=== PATIENT | male | born 1950 | race Caucasian/White ===

== ENCOUNTER 2021-09-15 15:37 | Emergency (ER) | payer MEDICARE, OTHER, SELFPAY ==
--- NOTE | ~2021-09-15 | CT_ITS ---
EXAMINATION: CTA brain carotid DATE: 09/15/2021 18:13 TRAFFIC POLICE OFFICER INDICATION: Dizziness and hypertension. Headache. TECHNIQUE: Computed tomographic angiography (CTA) of the head was performed without and with 100 mL O mnipaque-350 intravenous contrast. CTA of the neck was performed with intravenous contrast. The dose- length product was 1848.91 mGy-cm. Maximum intensity projection and volume rendered 3D-reconstruction s were created by the technologist on a separate workstation. COMPARISON: No prior studies for comparison. . FINDINGS: HEAD CTA: Brain parenchymal volume is normal. Normal guillen-white differentiation. Mild intracranial atherosclero sis. There are scattered mild periventricular and subcortical white matter changes, most likely relat ed to small vessel ischemic disease (microangiopathy). No acute intracranial hemorrhage, infarction, mass or mass effect. There is dominant left vertebral artery without evidence for significant stenosi s, occlusion or aneurysm. The anterior, middle and posterior cerebral arteries are symmetric with mil d atherosclerosis in the cavernous sinuses. NECK CTA: There is atherosclerosis of the carotid bulbs. No significant cervical lymphadenopathy. Thy roid gland is unremarkable. No evidence for significant stenosis or occlusion or dissection. There is 22% stenosis of the proximal right internal carotid artery relative to normal distal artery lumen diameter (NASCET criteria). There is 36% stenosis of the proximal left internal carotid artery relative to normal distal artery lumen diameter. IMPRESSION: 1. 22% stenosis of the proximal right internal carotid artery relative to normal distal artery lumen diameter (NASCET criteria). 2. 36% stenosis of the proximal left internal carotid artery relative to normal distal artery lumen d iameter. 3: No acute intracranial abnormality. No significant intracranial vascular abnormality. Reviewed, dictated and finalized at location A. FIC POLICE OFFICER IMPRESSION: 1. 22% stenosis of the proximal right internal carotid artery relative to marleny l distal artery lumen diameter (NASCET criteria). 2. 36% stenosis of the proximal left internal carotid artery relative to normal distal artery lumen diameter. 3: No acute intracranial abnormality. No significant intracranial vascular abno rmality.
[2021-09-15 15:40] VITALS: BP 225/96; PULSE 59; RESP 18; TEMP 36.2; O2SAT 99
--- NOTE | 2021-09-15 15:56 | ECG_ITS ---
Measurements Intervals [place] Rate: 56 P: 26 MN: 156 QRS: 1 QRSD: 104 T: 14 QT: 430 QTc: 416 Interpretive Statements SINUS BRADYCARDIA OTHERWISE NORMAL ECG NO PREVIOUS ECG AVAILABLE FOR COMPARISON Electronically Signed On 09-16-2021 10:58:03 PLASTER FOREMAN by Zeus Esquivel M.D.
[2021-09-15] MEDS: amLODIPine BESYLATE 5 MG TABLET PO (16:20)
[2021-09-15 16:24] LABS: Basophils Percent Auto 0.4 % (0.2-1.2); Eosinophils Absolute Auto 0.2 K/mm3 (0-0.3); Eosinophils Percent Auto 2.6 % (0-4.4); Hematocrit 49.2 % (42.0-52.0); Hemoglobin 16.4 g/dL (14.0-18.0); Immature Granulocyte Absolute 0.03 K/mm3 (0.00-0.031); Immature Granulocyte Percent A 0.4 % (0-0.5); Lymphocytes Absolute Auto 2.45 K/mm3 (0.9-3.2); Lymphocytes Percent Auto 34.2 % (18.3-44.2); Mean Corpuscular HGB Conc 33.3 g/dl (32-36); Mean Corpuscular Hemoglobin 31.2 pg (26-34); Mean Corpuscular Volume 93.7 fl (80-100); Mean Platelet Volume 10.8 fl (7.4-10.4); Monocytes Absolute Auto 0.7 K/mm3 (0.1-0.6); Monocytes Percent Auto 10.2 % (2.6-8.5); Neutrophils Absolute Auto 3.7 K/mm3 (1.3-6.7); Neutrophils Percent Auto 52.2 % (45.5-73.1); Platelet Count Result 179 k/mm3 (150-375); Red Blood Count 5.25 M/mm3 (4.6-6.20); Red Cell Distribution Width 13.2 % (11.5-14.5); White Blood Count 7.2 K/mm3 (4.5-10.0)
[2021-09-15 16:34] LABS: INR 0.9; Prothrombin Time 12.2 Seconds (11.1-14.7)
[2021-09-15 16:35] LABS: Partial Thromboplastin Time 32.1 SECONDS (22.3-36.8)
[2021-09-15 16:48] VITALS: BP 210/82; PULSE 54; RESP 18; O2SAT 98
[2021-09-15 16:50] LABS: Alanine Aminotransferase 32 U/L (4-50); Albumin Level 4.7 g/dL (3.5-5.1); Alkaline Phosphatase 68 U/L (38-126); Anion Gap 8 mmol/L (8-16); Aspartate Amino Transferase 37 U/L (17-59); Bilirubin,Total 0.7 mg/dL (0.2-1.3); Blood Urea Nitrogen 19 mg/dL (9-20); Calcium 9.4 mg/dL (8.4-10.2); Carbon Dioxide 26 mmol/L (22-30); Chloride 105 mmol/L (98-107); Estimated CRCL calculation 82 ml/min; Estimated Glomerular Filt Rate > 60; Glucose 90 mg/dL (65-110); Potassium 4.2 mmol/L (3.4-5.0); Sodium 139 mmol/L (137-145)
[2021-09-15 16:54] LABS: Add Urine Microscopic? YES; Appearance Urine Clear (Clear); Bilirubin Urine Negative (Negative); Blood Urine 1+ (Negative); Color Urine Straw (Yellow); Glucose Urine UA Negative (Negative); Ketones Urine Negative (Negative); Leukocyte Esterase Ur Negative LEU/UL (Negative); Nitrate Urine Negative (Negative); Protein Urine Negative (Negative); RBC Urine 0-2 /hpf (0-2); Urobilinogen Urine Negative mg/dL (<2.0); WBC Urine 0-3 /hpf
--- NOTE | 2021-09-15 16:55 | ED.RECABL ---
HPI - Recheck/Abnormal Lab/Rx General Chief Complaint: Recheck/Abnormal Lab/Rx Stated Complaint: high blood pressure Time Seen by Provider: 09/15/21 15:52 Source: patient Mode of arrival: ambulatory Limitations: no limitations History of Present Illness HPI narrative: This is a 70 year old male who presents for evaluation of dizziness and hypertension. Patient has history of long standing hypertension. He has elizabeth taking amlodopine 5 mg, atenolol 25 mg, and lisinopril 10 mg daily for 8 years. He states his blood pressure normally runs around 140s/70s, but he has not seen his PCP in 1.5 years. This afternoon, he developed throbbing pressure to his ear and dizziness. He checked his blood pressure it was was elevated. In triage, his blood pressure was 225/96. He denies having throbbing pressure now. He denies chest pain or shortness of breath. He has not symptoms now but he was concerned about his blood pressure. He is active and he was able to exercise at gym without symptoms. Related Data Home Medications Medication Instructions Recorded Confirmed aspirin 81 mg tablet,delayed 81 mg PO DAILY 06/23/20 06/23/20 release Allergies Allergy/AdvReac Type Severity Reaction Status Date / Time codeine Allergy Unknown Unknown Verified 09/15/21 16:49 Review of Systems Review of Systems: All systems reviewed & are unremarkable except as noted in HPI and below Eyes: Eyes: Denies change in vision and Denies photophobia Cardiovascular: Cardiovascular: Denies chest pain and Denies radiating jaw, neck or arm pain Respiratory: Respiratory: Denies cough and Denies dyspnea Gastrointestinal: Gastrointestinal: Denies abdominal pain and Denies nausea Neurologic: Reports headache(s) PMFSH Past Medical History Medical History Hypertension Family History Family History Other Hypertension Social History Social History Smoking status: Never smoker Alcohol intake: current Exam Narrative: GENERAL: Well-appearing, well-nourished, and in no acute distress. HEAD: Normocephalic, atraumatic EYES: PERRLA and EOMI, conjunctiva clear without discharge EARS: TM's clear bilaterally without erythema or dullness NOSE: Nares clear, no rhinorrhea or epistaxis THROAT:Mucous membranes moist, Oropharynx normal without erythema, exudate, peritonsillar swelling or fluctuance NECK: Supple, without lymphadenopathy or mass RESPIRATORY: No respiratory distress, Airway patent, Respirations non-labored, Clear to auscultation without rales, rhonchi or wheeze HEART: Regular rate and rhythm. No murmur heard. Normal peripheral pulses. ABDOMEN: Soft, nontender, nondistended, normal active bowel sounds. No masses. No rebound or guarding, No organomegaly. EXTREMITIES: No edema, normal strength with full range of motion. SKIN: Warm, dry, normal color without rash NEURO: Alert and oriented x3. CN 2-12 grossly intact. No focal deficits. PSYCH: Normal mood and affect. Course Reevaluation(s) Reevaluation #1: Patient would really like to go home. BP has improved. He will increased amlodipine and follow up with Dr. Melton on Friday. I Discussed CT scan and signs of TIA , stroke. He is asymptomatic Date: 09/15/21 Time: 19:06 Consultations Consultation #1: I spoke with Dr. Linh Mandujano's STUDY SPECIALIST . I discussed patient CT and BP. She will follow up with patient on Friday to get close follow up . Date: 09/15/21 Time: 18:57 Vital Signs Vital signs: Vital Signs Temperature 97.1 F L 09/15/21 15:40 Pulse Rate 59 L 09/15/21 15:40 Respiratory Rate 18 09/15/21 15:40 Blood Pressure 225/96 H 09/15/21 15:40 Pulse Oximetry 99 09/15/21 15:40 Temperature 97.1 F L 09/15/21 15:40 Pulse Rate 60 09/15/21 19:01 Respiratory Rate 18 09/15/21 19:01 Blood Pressur
[2021-09-15 17:00] VITALS: BP 204/91; PULSE 52; RESP 18; O2SAT 96
[2021-09-15 18:02] VITALS: BP 222/83; PULSE 54; RESP 18; O2SAT 98
[2021-09-15] MEDS: hydrALAZINE HCL 20 MG/ML VIAL 10 MG IV PUSH ×2 (18:07→18:45)
[2021-09-15 18:38] VITALS: BP 213/85; PULSE 54; RESP 18; O2SAT 97
[2021-09-15 19:01] VITALS: BP 163/63; PULSE 60; RESP 18; O2SAT 97
== END 2021-09-15 19:17 | disposition home or self-care (01) ==
PROVIDERS: Emergency Provider General Practice; PCP Family Medicine
DX: I16.0 Hypertensive urgency (principal); I10 Essential (primary) hypertension; Z79.82 Long term (current) use of aspirin; R00.1 Bradycardia, unspecified; I65.23 Occlusion and stenosis of bilateral carotid arteries
CPT/HCPCS: 36415; 70496; 70498; 80053; 81001; 85025; 85610; 85730; 93005; 96374; 96376; 99284; A9270; J0360; Q9967

== ENCOUNTER 2021-09-16 16:37 | Emergency (ER) | payer MEDICARE, OTHER, SELFPAY ==
[2021-09-16 16:40] VITALS: BP 226/76; PULSE 66; RESP 14; TEMP 36.3; O2SAT 99
[2021-09-16 16:48] VITALS: PULSE 66
[2021-09-16 16:54] VITALS: BP 183/61; PULSE 66; RESP 15; O2SAT 98
[2021-09-16 16:56] VITALS: BP 194/79
--- NOTE | 2021-09-16 17:19 | ED.GENADULT ---
HPI - General Adult General Chief complaint: Unspecified <Sophia Patel PA-C - Last Filed: 09/16/21 19:32> Stated complaint: ELEVATED BP <Sophia Patel PA-C - Last Filed: 09/16/21 19:32> Time Seen by Provider: 09/16/21 16:55 <Sophia Patel PA-C - Last Filed: 09/16/21 19:32> Source: patient <Sophia Patel PA-C - Last Filed: 09/16/21 19:32> Mode of arrival: ambulatory <Sophia Patel PA-C - Last Filed: 09/16/21 19:32> Limitations: no limitations <Sophia Patel PA-C - Last Filed: 09/16/21 19:32> History of Present Illness HPI narrative: Patient is a 70-year-old male who presents to the ED with complaints of lightheadedness and high blood pressure. Patient was seen in the ED yesterday for the same symptoms, at which point he had a normal work-up in the ED. No signs of end organ damage. CTA negative for significant stenosis. His PCP was contacted to make a follow-up appointment on Friday. Patient was instructed to increase his amlodipine to 10 mg in the morning, in addition to his atenolol 25 mg and lisinopril 10 mg. Patient took his medications this morning, and reports today he began to feel lightheaded after eating lunch. He checked his blood pressure which was 160/80 at that time. He then checked his blood pressure several more times today which was increased each time. He even took another amlodipine 5 mg and lisinopril 10 mg around 2 PM. He checked his blood pressure once more around 4 PM and noted it was increased to 200s over 100s, at which point he decided to return to the ED. BP upon arrival was 226/76. Upon my evaluation, BP 194/79. Patient reports feeling slightly lightheaded currently in the ED, but denies any dizziness, vertigo sensation, chest pain, cough, fevers, chills, back pain, headache, vision changes, shortness of breath, nausea, vomiting, abdominal pain, urinary symptoms, or focal weakness. Patient notes he is very active and goes to the gym several times a week. <Sophia Patel PA-C - Last Filed: 09/16/21 19:32> Related Data Home medications: Home Medications Medication Instructions Recorded Confirmed aspirin 81 mg tablet,delayed 81 mg PO DAILY 06/23/20 06/23/20 release <Sophia Patel PA-C - Last Filed: 09/16/21 19:32> Allergies/adverse reactions: Allergies Allergy/AdvReac Type Severity Reaction Status Date / Time codeine Allergy Unknown Unknown Verified 09/16/21 16:47 <Sophia Patel PA-C - Last Filed: 09/16/21 19:32> Review of Systems Review of Systems: CONSTITUTIONAL: Denies fever, chills, or sweats. EYES: Denies visual changes. CARDIOVASCULAR: Denies chest pain, palpitations, or edema. RESPIRATORY: Denies cough or dyspnea. GASTROINTESTINAL: Denies abdominal pain, nausea, vomiting, or diarrhea. GENITOURINARY: Denies dysuria or hematuria. MUSCULOSKELETAL: Denies back pain, joint pain, or myalgia. NEUROLOGIC: Reports lightheadedness. Denies dizziness, vertigo, headache, numbness, or focal weakness. <Sophia Patel PA-C - Last Filed: 09/16/21 19:32> All systems reviewed & are unremarkable except as noted in HPI and below <Sophia Patel PA-C - Last Filed: 09/16/21 19:32> [facility] Past Medical History Medical History: Medical History (Updated 09/16/21 @ 18:59 by Sophia Patel PA-C) Hypertension <Sophia Patel PA-C - Last Filed: 09/16/21 19:32> Surgical History Surgical History: Surgical History (Updated 09/16/21 @ 17:23 by Sophia Patel PA-C) No pertinent past surgical history <Sophia Patel PA-C - Last Filed: 09/16/21 19:32> Family History Family History: Family History Other Hypertension <Sophia Patel PA-C - Last Filed: 09/16/21 19:32> Social History Social History: Social History Smoking status: Never smoker Alcohol intake: current <Sophia Patel PA-C -
--- NOTE | 2021-09-16 17:21 | ECG_ITS ---
Measurements Intervals [place] Rate: 61 P: 5 [place]: 147 QRS: -15 QRSD: 99 T: -10 QT: 421 QTc: 426 Interpretive Statements SINUS RHYTHM MODERATE VOLTAGE CRITERIA FOR LVH, CONSIDER NORMAL VARIANT [MEETS CRITERIA IN ONE OF: R(aVL), S(V1), R(V5), R(V5/V6)+S(V1)] OTHERWISE NORMAL ECG COMPARED TO ECG 09/15/2021 15:58:22 NO SIGNIFICANT CHANGE Electronically Signed On 09-17-2021 13:55:00 FILM COLOR TESTER by Zeus Esquivel M.D.
[2021-09-16 17:34] LABS: Basophils Percent Auto 0.5 % (0.2-1.2); Eosinophils Absolute Auto 0.1 K/mm3 (0-0.3); Eosinophils Percent Auto 1.7 % (0-4.4); Hematocrit 49.5 % (42.0-52.0); Hemoglobin 16.5 g/dL (14.0-18.0); Immature Granulocyte Absolute 0.02 K/mm3 (0.00-0.031); Immature Granulocyte Percent A 0.3 % (0-0.5); Lymphocytes Percent Auto 30.8 % (18.3-44.2); Mean Corpuscular HGB Conc 33.3 g/dl (32-36); Mean Corpuscular Hemoglobin 31.5 pg (26-34); Mean Corpuscular Volume 94.6 fl (80-100); Mean Platelet Volume 10.4 fl (7.4-10.4); Monocytes Absolute Auto 0.8 K/mm3 (0.1-0.6); Neutrophils Absolute Auto 3.6 K/mm3 (1.3-6.7); Neutrophils Percent Auto 54.7 % (45.5-73.1); Platelet Count Result 155 k/mm3 (150-375); Red Blood Count 5.23 M/mm3 (4.6-6.20); Red Cell Distribution Width 13.2 % (11.5-14.5); White Blood Count 6.5 K/mm3 (4.5-10.0)
[2021-09-16 17:47] LABS: Anion Gap 9 mmol/L (8-16); Blood Urea Nitrogen 16 mg/dL (9-20); Calcium 9.6 mg/dL (8.4-10.2); Carbon Dioxide 25 mmol/L (22-30); Chloride 105 mmol/L (98-107); Estimated CRCL calculation 75 ml/min; Estimated Glomerular Filt Rate > 60; Glucose 106 mg/dL (65-110); Potassium 4.1 mmol/L (3.4-5.0); Sodium 139 mmol/L (137-145)
[2021-09-16 17:55] LABS: Troponin I < 0.012 ng/mL (0.000-0.034)
[2021-09-16 19:11] VITALS: BP 170/77; PULSE 57; RESP 20; TEMP 37.2; O2SAT 95
[2021-09-16 19:23] LABS: Add Urine Microscopic? YES; Appearance Urine Clear (Clear); Bilirubin Urine Negative (Negative); Blood Urine 2+ (Negative); Color Urine Straw (Yellow); Glucose Urine UA Negative (Negative); Ketones Urine Negative (Negative); Leukocyte Esterase Ur Negative LEU/UL (Negative); Mucus Urine Rare /lpf; Nitrate Urine Negative (Negative); Protein Urine Negative (Negative); RBC Urine 0-2 /hpf (0-2); Specific Grav Ur 1.009 (1.001-1.035); Urobilinogen Urine Negative mg/dL (<2.0); WBC Urine 0-3 /hpf
== END 2021-09-16 19:23 | disposition home or self-care (01) ==
PROVIDERS: Physician Assistant; Emergency Provider Emergency Medicine; PCP Family Medicine
DX: I16.0 Hypertensive urgency (principal); I10 Essential (primary) hypertension; R94.31 Abnormal electrocardiogram [ECG] [EKG]
CPT/HCPCS: 36415; 80048; 81001; 84484; 85025; 93005; 99284

== ENCOUNTER 2024-10-03 14:15 | Emergency (ER) | payer MEDICARE, SELFPAY ==
--- NOTE | ~2024-10-03 | XR_ITS ---
XR chest 1V portable DATE: 10/03/2024 18:31 INDICATION: Palpitations TECHNIQUE: Portable upright AP chest on 10/03/2024 at 1829 hours COMPARISON: 06/27/2017 2 view chest FINDINGS: Normal heart size. No hilar or mediastinal enlargement. Aortic arch calcification, minimal aortic unfolding. No pulmonary infiltrate or consolidation, pleural effusion or pulmonary vascular congestion or pneumo thorax. Degenerative spurring of the thoracic spine. IMPRESSION: No active cardiopulmonary disease Aortic atherosclerosis Reviewed, dictated and finalized at location A.
[2024-10-03 14:33] VITALS: BP 162/86; PULSE 64; RESP 18; TEMP 36.3; O2SAT 97
--- NOTE | 2024-10-03 14:33 | ECG_ITS ---
Test Date: 2024-10-03 14:39:19 Measurements Intervals [place] Rate: 55 P: 33 UT: 162 QRS: -5 QRSD: 98 T: 21 QT: 400 QTc: 383 Interpretive Statements SINUS BRADYCARDIA MINIMAL VOLTAGE CRITERIA FOR LVH, CONSIDER NORMAL VARIANT [MEETS CRITERIA IN ONE OF: R(aVL), S(V1), R(V5), R(V5/V6)+S(V1)] No previous ECG available for comparison Electronically Signed On 10-04-2024 16:33:01 CDT by Keny Nieto M.D.
[2024-10-03 17:30] VITALS: BP 146/77; PULSE 53; RESP 16; O2SAT 99
[2024-10-03 18:32] VITALS: BP 158/88; PULSE 52; PULSE 58; RESP 18; TEMP 36.6; O2SAT 98
[2024-10-03 18:57] LABS: Basophils Percent Auto 0.4 % (0.2-1.2); Eosinophils Absolute Auto 0.1 K/mm3 (0-0.3); Eosinophils Percent Auto 1.2 % (0-4.4); Hemoglobin 16.2 g/dL (14.0-18.0); Immature Granulocyte Absolute 0.04 K/mm3 (0.00-0.031); Immature Granulocyte Percent A 0.5 % (0-0.5); Lymphocytes Absolute Auto 2.83 K/mm3 (0.9-3.2); Lymphocytes Percent Auto 34.9 % (18.3-44.2); Mean Corpuscular HGB Conc 33.8 g/dl (32-36); Mean Corpuscular Hemoglobin 30.7 pg (26-34); Mean Corpuscular Volume 91.1 fl (80-100); Mean Platelet Volume 10.6 fl (7.4-10.4); Monocytes Absolute Auto 0.7 K/mm3 (0.1-0.6); Monocytes Percent Auto 8.9 % (2.6-8.5); Neutrophils Absolute Auto 4.4 K/mm3 (1.3-6.7); Neutrophils Percent Auto 54.1 % (45.5-73.1); Platelet Count Result 184 k/mm3 (150-375); Red Blood Count 5.27 M/mm3 (4.6-6.20); Red Cell Distribution Width 13.3 % (11.5-14.5); White Blood Count 8.1 K/mm3 (4.5-10.0)
[2024-10-03 19:11] LABS: Alanine Aminotransferase 42 U/L (6-50); Albumin Level 4.9 g/dL (3.5-5.1); Alkaline Phosphatase 65 U/L (38-126); Anion Gap 10 mmol/L (4-12); Aspartate Amino Transferase 35 U/L (17-59); Bilirubin,Total 0.7 mg/dL (0.2-1.3); Blood Urea Nitrogen 19 mg/dL (9-20); Calcium 10.2 mg/dL (8.4-10.2); Carbon Dioxide 28 mmol/L (22-30); Chloride 103 mmol/L (98-107); Estimated CRCL calculation 71 ml/min; Estimated Glomerular Filt Rate > 60; Glucose 100 mg/dL (65-110); Lipase 55 U/L (23-300); Potassium 3.9 mmol/L (3.4-5.0); Sodium 141 mmol/L (137-145)
[2024-10-03 19:16] LABS: INR 0.9; Prothrombin Time 12.6 Seconds (11.1-14.7)
[2024-10-03 19:17] LABS: Partial Thromboplastin Time 30.6 Seconds (22.3-36.8)
[2024-10-03 19:22] LABS: Troponin I < 0.012 ng/mL (0.000-0.034)
--- NOTE | 2024-10-03 19:50 | ED.ARRPALP ---
HPI - Arrhythmia/Palpitations General Chief Complaint: Arrhythmia/Palpitations Stated Complaint: palpitations, lightheaded Time Seen by Provider: 10/03/24 18:33 History of Present Illness HPI narrative: 73-year-old male with history of hypertension hyperlipidemia presents to the emergency department for palpitations and lightheadedness. Patient states around 12 30 today he was sitting on the couch when he began to feel his heart fluttering with associated lightheadedness. He states this lasted approximately 2 hours. He notes he has had similar episodes but usually the palpitations and lightheadedness occur her a couple hours after he is drink some beers. Patient states he has not had anything to drink today. Last drink was yesterday. He states he drinks about 4-5 beers 3-4 days a week. He notes that he went to the gym this morning and it weight training and cardio for 15 minutes and had no chest pain, lightheadedness, dizziness, shortness of breath or palpitations during that time. His symptoms did not start until he was L at home and sitting on his couch resting. He states he has not had any symptoms in several hours and feels in his normal state of health. He denies chest pain with his palpitations. Denies current palpitations, lightheadedness shortness of breath, chest pain, lower extremity edema, history of VTE. No history of prior arrhythmias, thyroid or cardiac disease. He has not worn a Holter monitor. Patient notes his heart rate is normally 52 beats per minute. Related Data Home Medications ?Medication ?Instructions ?Recorded ?Confirmed ?Last Taken ?Type aspirin 81 mg tablet,delayed 81 mg PO DAILY 06/23/20 05/19/24 Unknown History release (Adult Low Dose Aspirin) Allergies Allergy/AdvReac Type Severity Reaction Status Date / Time codeine Allergy Severe Nausea Verified 10/03/24 14:16 Review of Systems Review of Systems: All systems reviewed & are unremarkable except as noted in HPI and below PMFSH Past Medical History Medical History Screen for colon cancer COVID-19 BMI 33.0-33.9,adult Hypertension Surgical History Surgical History No pertinent past surgical history Family History Family History Father Melanoma Mother Kidney failure Sibling Acute myocardial infarction Neuroendocrine cancer Other Hypertension Social History Social History Smoking status: Former smoker Second hand tobacco smoke exposure: Yes Alcohol intake: current Substance use: never Substance use type: does not use Do You Feel Safe in your Home?: Yes Lack of Transportation: No Lack of Food: Never True Current Housing: I Have Housing Concerned About Future Housing: No Difficulty Paying Gas/Electric Bills: No Difficulty Paying for Meds: No Currently Unemployed: No Education: Trade/Vocational Certificate Difficulty w/ Childcare or Family Care: No Living arrangements: with family Occupation/Education: retired 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 HEAD: Normocephalic, atraumatic. EYES: EOMI. ENT: Nares clear, no rhinorrhea or epistaxis. Mucous membranes moist. NECK: Supple. CHEST: Clear to auscultation. No respiratory distress. HEART: Regular rate and rhythm. No murmur heard. Normal peripheral pulses. ABDOMEN: Soft, nontender, nondistended, normal active bowel sounds. EXTREMITIES: Normal range of motion. No edema. Negative Homans bilaterally SKIN: Warm, dry, no rash. NEURO: No focal deficits. Alert and oriented x3 Course Vital Signs Vital signs: Vital Signs Temperature 97.3 F L 10/03/24 14:33 Pulse Rate 64 10/03/24 14:33 Respiratory Rate 18 10/03/24 14:33 Blood Pressure 162/86 H 10/03/24 14:33 Pulse Oximetry 97 10/03/24 14:33 Temperature 97.8 F 10/03/24 18:32 Pulse Rate 58 L 10/03/24 21:29 Respiratory Rate 15 10/03/24 21:29 Blood Pressure 152/86 H 10/03/24 21:29 Pulse Oximetry 99 10/03/24 21:29 MDM - Arrhythmia/Palpitations MDM Narrative Medical decision making narrative: 73-year-old male with history of hypertension and hyperlipidemia presents to the emergency department for a 2 hour episode of palpitations and lightheadedness that occurred at 12:30 p.m. this afternoon while sitting on the couch. See HPI for further history. Vitals with elevated blood pressure, otherwise unremarkable. Patient is afebrile nontoxic appearing resting comfortably in exam bed. At the time of my evaluation patient has been asymptomatic for several hours. EKG shows sinus bradycardia with rate of 55 ppm, normal ND interval, normal QRS duration, normal QTC, no ischemic changes. Troponin undetectable. CBC unremarkable. Chemistry is without electrolyte derangements. Mag normal. TSH within normal limits. Chest x-ray shows no acute cardiopulmonary findings. Patient updated on results. Remains asymptomatic in the ED. He was advised to follow-up with his PCP and Cardiology for outpatient Holter monitor. Discussed return precautions. He is agreeable with the plan verbalized understanding. Discharged in stable condition. Lab Data 10/03/24 18:53 10/03/24 18:53 Labs: Lab Results 10/03/24 10/03/24 Range/Units 18:51 18:53 WBC 8.1 (4.5-10.0) K/mm3 RBC 5.27 (4.6-6.20) M/mm3 Hgb 16.2 (14.0-18.0) g/dL Hct 48.0 (42.0-52.0) % MCV 91.1 (80-100) fl MCH 30.7 (26-34) pg MCHC 33.8 (32-36) g/dl RDW 13.3 (11.5-14.5) % Plt Count 184 (150-375) k/mm3 MPV 10.6 H (7.4-10.4) fl Immature Gran % (Auto) 0.5 (0-0.5) % Neut % (Auto) 54.1 (45.5-73.1) % Lymph % (Auto) 34.9 (18.3-44.2) % [place] % (Auto) 8.9 H (2.6-8.5) % Eos % (Auto) 1.2 (0-4.4) % Baso % (Auto) 0.4 (0.2-1.2) % Lymph # (Auto) 2.83 (0.9-3.2) K/mm3 [place] # (Auto) 0.7 H (0.1-0.6) K/mm3 Eos # (Auto) 0.1 (0-0.3) K/mm3 Baso # (Auto) 0.0 (0.0-0.1) K/mm3 Abs Immat Gran (auto) 0.04 H (0.00-0.031) K/mm3 Absolute Neuts (auto) 4.4 (1.3-6.7) K/mm3 Absolute Nucleated RBC 0.000 (0.0-0.012) K/mm3 Nucleated RBC % 0.0 (0.0-0.2) % PT 12.6 (11.1-14.7) Seconds INR 0.9 APTT 30.6 (22.3-36.8) Seconds Sodium 141 (137-145) mmol/L Potassium 3.9 (3.4-5.0) mmol/L Chloride 103 (98-107) mmol/L Carbon Dioxide 28 (22-30) mmol/L Anion Gap 10 (4-12) mmol/L BUN 19 (9-20) mg/dL Creatinine 0.99 (0.7-1.3) mg/dL Estim Creat Clear Calc 71 ml/min Estimated GFR > 60 (59 - ) Glucose 100 (65-110) mg/dL Calcium 10.2 (8.4-10.2) mg/dL Magnesium 1.9 (1.6-2.3) mg/dL Total Bilirubin 0.7 (0.2-1.3) mg/dL AST 35 (17-59) U/L ALT 42 (6-50) U/L Alkaline Phosphatase 65 (38-126) U/L Troponin I < 0.012 (0.000-0.034) ng/mL Total Protein 8.0 (6.3-8.2) g/dL Albumin 4.9 (3.5-5.1) g/dL Lipase 55 (23-300) U/L TSH (Reflex) 2.390 (0.465-4.68) uIU/mL Discharge Plan Discharge Clinical Impression: Palpitations Patient Disposition: Home, Self-Care Condition: Stable Instructions: Antibiotic Form, Heart Palpitations (DC) Additional Instructions: You were evaluated in the emergency department for palpitations. Your workup here is reassuring and shows no electrolyte derangements, normal thyroid function, normal chest x-ray. Please follow-up closely with your primary care provider and restrike hammer operator I referred you to as you will likely need an outpatient Holter monitor for further evaluation. Return to the emergency department if you develop worsening palpitations, you lose consciousness, chest pain or other concerning symptoms. Continue taking your beta-ashkan as prescribed. Patient Language: Lebanese Prescriptions: No Action aspirin [Adult Low Dose Aspirin] 81 mg tablet,delayed release (DR/EC) 81 mg PO DAILY lisinopril-hydrochlorothiazide 20-12.5 mg tablet 1 tablet PO DAILY Qty: 90 3RF amlodipine 10 mg tablet 10 mg PO DAILY Qty: 90 3RF nebivolol [Bystolic] 5 mg tablet 5 mg PO DAILY Qty: 90 3RF Follow-up/Referrals: Octavia Pacheco MD [Physician] - Elliot Melton MD [Primary Care Provider] -
[2024-10-03 20:09] LABS: Magnesium 1.9 mg/dL (1.6-2.3)
[2024-10-03 21:29] VITALS: BP 152/86; PULSE 58; RESP 15; O2SAT 99
== END 2024-10-03 21:34 | disposition home or self-care (01) ==
PROVIDERS: Emergency Medicine; Emergency Provider Physician Assistant; PCP Family Medicine
DX: R00.2 Palpitations (principal); I10 Essential (primary) hypertension; E78.5 Hyperlipidemia, unspecified; Z86.16 Personal history of COVID-19; Z87.891 Personal history of nicotine dependence; Z79.82 Long term (current) use of aspirin; Z79.899 Other long term (current) drug therapy; R00.1 Bradycardia, unspecified
CPT/HCPCS: 36415; 71045; 80053; 83690; 83735; 84443; 84484; 85025; 85610; 85730; 93005; 99284